=== PATIENT | male | born 1970 | race Caucasian/White ===

== ENCOUNTER → 2023-11-27 07:10 | Outpatient (REF) | payer BC, SELFPAY | LOC: MRI 07:10 | PROVIDERS: ATTENDING PHYSICIAN Nurse Practitioner Adult Health | DX: M54.2 Cervicalgia (principal); M62.838 Other muscle spasm; S46.811D Strain of other muscles, fascia and tendons at shoulder and upper arm level, right arm, subsequent encounter | CPT/HCPCS: 72141 ==

== ENCOUNTER → 2024-06-12 06:31 | Day surgery (SDC) | payer BC, SELFPAY | LOC: GI 06:31 | PROVIDERS: ATTENDING PHYSICIAN Specialist | DX: Z12.11 Encounter for screening for malignant neoplasm of colon (principal); K63.5 Polyp of colon; Z86.010 Personal history of colon polyps | CPT/HCPCS: 45380; 88305 ==

== ENCOUNTER → 2024-10-22 08:59 | Outpatient (REF) | payer BC, SELFPAY | LOC: RAD 08:59 | PROVIDERS: ATTENDING PHYSICIAN Internal Medicine | DX: R13.19 Other dysphagia (principal) | CPT/HCPCS: 74221; 74230; 92611 ==